=== PATIENT | female | born 1955 | race Caucasian/White ===

== ENCOUNTER 2017-12-15 15:05 | Inpatient (IN) | payer OTHER ==
[~2017-12-15] VITALS: Ht 162.6 cm; Wt 70.5 kg
[2017-12-15 16:43] LABS: CALCIUM 9.1 mg/dL (8.5-10.1); CHLORIDE SERUM 105 mmol/L (98-107); CREATININE SERUM 0.7 mg/dL (0.6-1.0); GFR1 > 60 mL/min; GLUCOSE SERUM 98 mg/dL (74-106); POTASSIUM SERUM 3.1 mmol/L (3.5-5.1); SODIUM SERUM 143 mmol/L (136-145)
[2017-12-15 16:47] LABS: ALT/SGPT 34 U/L (14-59); BILIRUBIN TOTAL 0.36 mg/dL (0.20-1.00)
[2017-12-15 16:52] LABS: PLATELET COUNT 212 x10^3mcL (130-400); RED CELL DISTRIBUTION WIDTH 12.1 % (11.5-14.5)
[2017-12-15 16:55] LABS: ALBUMIN 4.1 g/dL (3.4-5.0); ALKALINE PHOSPHATASE 91 U/L (46-116); AST/SGOT 21 U/L (15-37); FREE T4 1.13 ng/dL (0.76-1.46); TOTAL PROTEIN, SERUM 7.6 g/dL (6.4-8.2)
[2017-12-15 17:20] LABS: microscopic required? YES; urine erythrocyte TRACE (NEGATIVE)
[2017-12-15 17:21] LABS: BASOPHIL % 4.8 % (0-2)
[2017-12-15] MEDS ORDERED: [UNRECOGNIZED DRUG - OTHER] (19:33)
[2017-12-15] MEDS ORDERED: [UNRECOGNIZED DRUG - OTHER] (19:34)
[2017-12-15 19:57] LABS: FREE T4 1.02 ng/dL (0.76-1.46); FREE THYROXINE INDEX 3.3 ug/dL (1.4-4.5); T4(THYROXINE) 9.3 ug/dL (4.7-13.3)
[2017-12-15 20:08] VITALS: BP 146/62
[2017-12-15 20:11] VITALS: Ht 162.6 cm; Wt 70.5 kg
[2017-12-15 20:39] LABS: PHOSPHOROUS 3.6 mg/dL (2.5-4.9)
[2017-12-15 20:42] LABS: CHOLESTEROL/HDL RATIO 3.9
[2017-12-15 21:38] LABS: AMPHETAMINE QUAL UR NONE DETECTED (NEG <=1000)
[2017-12-15 22:14] LABS: T3 TOTAL 1.03 ng/mL
[2017-12-16 05:38] VITALS: BP 115/58
[2017-12-16 07:03] LABS: CALCIUM 8.9 mg/dL (8.5-10.1); CARBON DIOXIDE 27.2 mmol/L (21-32); CHLORIDE SERUM 109 mmol/L (98-107); CREATININE SERUM 0.7 mg/dL (0.6-1.0); GFR1 > 60 mL/min; GLUCOSE SERUM 91 mg/dL (74-106); MAGNESIUM 2.4 mg/dL (1.8-2.4); PHOSPHOROUS 3.5 mg/dL (2.5-4.9); POTASSIUM SERUM 4.8 mmol/L (3.5-5.1); SODIUM SERUM 145 mmol/L (136-145)
[2017-12-16 08:28] LABS: BASOPHIL % 0.4 % (0-2); PLATELET COUNT 199 x10^3mcL (130-400); RED CELL DISTRIBUTION WIDTH 13.2 % (11.5-14.5)
[2017-12-16 10:20] VITALS: BP 107/57
[2017-12-16 14:31] VITALS: BP 110/53
[2017-12-16 18:03] VITALS: BP 109/53
[2017-12-16 18:46] VITALS: BP 109/53
== END 2017-12-16 19:54 | disposition home or self-care (01) | DRG 74 ==
LOC: ED 15:05 → DU 18:14
PROVIDERS: Emergency Medicine; Family Medicine
DX: G90.8 Other disorders of autonomic nervous system (principal); E87.2 Acidosis; I48.91 Unspecified atrial fibrillation; E87.6 Hypokalemia; R73.03 Prediabetes
CPT/HCPCS: 83880; 84439; 85378; 94150; G0480; J2405; J3475; J3480; J3490; J7030; Q0092